=== PATIENT | female | born 2000 | race Caucasian/White ===

== ENCOUNTER 2020-06-08 05:37 | Outpatient (RCR) | payer BC ==
[~2020-06-08] VITALS: Ht 154 cm; Wt 84.0 kg
[2020-06-08] MEDS ORDERED: ZINC50TA11 PO (14:33)
[2020-06-08] MEDS ORDERED: LEVO25CA4 PO (14:33)
[2020-06-08] MEDS ORDERED: VITA1CAP PO (14:33)
[2020-06-08] MEDS ORDERED: ASCO-262 PO (14:33)
== END 2020-06-08 16:00 | disposition home or self-care (01) ==
LOC: PREOP 05:37
PROVIDERS: ATTEND Surgery
DX: Z01.818 Encounter for other preprocedural examination (principal)

== ENCOUNTER → 2020-06-09 | Outpatient (CLI) | payer BC, OTHER ==
[~2020-06-09] MED LIST: ASCO-262 PO; LEVO25CA4 PO; VITA1CAP PO; ZINC50TA11 PO
== END ==
LOC: LAB FS 10:30
PROVIDERS: ATTEND Surgery
DX: Z01.812 Encounter for preprocedural laboratory examination (principal); K21.9 Gastro-esophageal reflux disease without esophagitis; K92.1 Melena; Z20.828 Contact with and (suspected) exposure to other viral communicable diseases
CPT/HCPCS: 87635

== ENCOUNTER 2020-06-15 09:53 | Day surgery (SDC) | payer BC ==
[~2020-06-15] VITALS: Ht 154 cm; Wt 84.0 kg
[2020-06-15] VITALS (7 sets, daily range): BP systolic 98–116; BP diastolic 57–75
[2020-06-15] MEDS ORDERED: LACTATED RINGERS 1,000 ML IV ONE (09:59)
[2020-06-15] MEDS ORDERED: LACTATED RINGERS 1,000 ML IV STA (10:05)
[2020-06-15] MEDS ORDERED: HURRICAINE EXT TUBE (BENZOCAINE) XX PRN (10:15)
[2020-06-15] MEDS ORDERED: HURRICAINE EXT TUBE (BENZOCAINE) ONE (10:17)
[2020-06-15] MEDS ORDERED: MIDAZOLAM 5 MG/5 ML (VERSED) VIAL ONE (10:34)
[2020-06-15] MEDS ORDERED: PROPOFOL INJECTION 50 ML IV ONE ×2 (10:34→10:57)
--- NOTE | 2020-06-15 10:35 | Progress Note-Pre Operative ---
Pre-Operative Progress Note H&P Reviewed The H&P was reviewed, patient examined and no changes noted. Date Seen by Provider: Jun 15, 2020 Time Seen by Provider: 10:35 Date H&P Reviewed: Jun 15, 2020 Time H&P Reviewed: 10:35 Pre-Operative Diagnosis: gerd blood in stool SKIP MOULTON DO Jun 15, 2020 10:35
--- NOTE | 2020-06-15 11:21 | Progress Note-Post Operative ---
Post-Operative Progess Note Surgeon (s)/Toy Stuffer (s) Surgeon SKIP MOULTON DO Toy Stuffer: na Pre-Operative Diagnosis gerd blood in stool Post-Operative Diagnosis questionable submucosal mass normal colon posterior fissure Procedure & Operative Findings Date of Procedure 06/15/20 Procedure Performed/Findings egd c biopsies colonoscopy Anesthesia Type per supervisor frame assembly Estimated Blood Loss Estimated blood loss (mL): none Specimens/Packing Specimens Removed antrum, ge, SKIP MOULTON DO Jun 15, 2020 11:21
[2020-06-15] MEDS ORDERED: DOCU-143 PO (11:22)
--- NOTE | 2020-06-15 11:22 | Discharge Inst-Simple/Standard ---
Discharge Inst-Standard Discharge Medications New, Converted or Re-Newed RX: Transmitted to Pharmacy Patient Instructions/Follow Up Plan of Care/Instructions/FU: 2-3 weeks Kira Activity as Tolerated: Yes Discharge Diet: Regular Diet (high fiber) SKIP MOULTON DO Jun 15, 2020 11:22
--- NOTE | 2020-06-15 12:48 | OPERATIVE REPORT ---
DATE OF SERVICE: 06/15/2020 PREOPERATIVE DIAGNOSES: Gastroesophageal reflux disease, blood in stool. POSTOPERATIVE DIAGNOSIS: Questionable submucosal mass normal colon, posterior fissure. PROCEDURE: EGD with biopsies, colonoscopy. SURGEON: Skip Malone DO ANESTHESIA: Per MAPPING TECHNICIAN. ESTIMATED BLOOD LOSS: None. COMPLICATIONS: None. INDICATIONS: The patient is a 20-year-old female with GERD, blood in stool. She understands risks and benefits of procedure and wished to proceed with procedures. Consent was signed in the chart. DESCRIPTION OF PROCEDURE: The patient was taken to the endoscopy suite, placed in left lateral recumbent position. Timeout was performed. Scope was inserted in mouth, down the esophagus, stomach and into the duodenum without difficulty. There were no polyps, masses or ulcerations within the duodenum. Scope was slowly retracted back into the stomach where it was further insufflated. No polyps, masses or ulcerations within the antrum. Scope was slowly retracted back and along the greater curvature, no mucosa by the submucosal area it does appear to have a questionable submucosal mass. Scope was retroflexed noting no other pathology. Scope was returned to its normal position. Biopsy of the antrum was obtained. Scope was slowly retracted back to the GE junction, which biopsy of the GE junction was obtained. Questionable esophagitis. Scope was then slowly retracted back until completely removed, noting no other pathology. The patient tolerated procedure well. Digital rectal exam was performed. Posterior anal fissure is present with anal tag present. No active bleeding. No palpable polyps, masses or ulcerations. Scope was inserted in the rectum, advanced all the way to cecum with minimal difficulty. The ileocecal valve was intubated and normal appearance. Scope was then retracted back into the colon. No polyps, masses or ulcerations within the cecum, ascending, transverse, descending and sigmoid colon. Once in the rectum, scope was retroflexed noting no other pathology. Scope was returned to its normal position, slowly withdrawn until completely removed. The patient tolerated procedure well without any complications. She was taken to recovery room in stable condition. RECOMMENDATIONS: The patient was started on Colace 100 mg b.i.d. to keep stools soft. Recommend high fiber diet. Increase water. The patient will follow up in the office for reexamination. Bleeding source most likely from the posterior anal fissure. The patient with submucosal mass will consider further workup either with imaging versus endoscopic ultrasound. Await biopsy results. Job ID: [id number] DocumentID: [id number] Dictated Date: 06/15/2020 11:26:39 Brand Strategist Date: 06/15/2020 12:47:56 Dictated By: SKIP MALONE DO
--- NOTE | 2020-06-15 13:21 | Anesthesia-General Post-Op ---
MAC Patient Condition Mental Status/LOC: Same as Preop Cardiovascular: Satisfactory Nausea/Vomiting: Absent Respiratory: Satisfactory Pain: Controlled Complications: Absent Post Op Complications Complications None Follow Up Care/Instructions Patient Instructions None needed. Anesthesiology Discharge Order Discharge Order Patient is doing well, no complaints, stable vital signs, no apparent adverse anesthesia problems. No complications reported per nursing. SHAYLA CONNER CRNA Jun 15, 2020 13:21
== END 2020-06-15 12:30 | disposition home or self-care (01) ==
LOC: ENDO 09:53
PROVIDERS: ATTEND Surgery
DX: K21.00 Gastro-esophageal reflux disease with esophagitis, without bleeding (principal); K92.1 Melena; K60.2 Anal fissure, unspecified; K21.9 Gastro-esophageal reflux disease without esophagitis; M19.90 Unspecified osteoarthritis, unspecified site; Z79.899 Other long term (current) drug therapy; Z88.1 Allergy status to other antibiotic agents
CPT/HCPCS: 88305

== ENCOUNTER → 2020-08-13 | Outpatient (CLI) | payer BC ==
[~2020-08-13] MED LIST changes: +DOCU-143 PO
== END ==
LOC: LAB FS 10:20
PROVIDERS: ATTEND Internal Medicine Gastroenterology
DX: Z01.812 Encounter for preprocedural laboratory examination (principal); Z20.822 Contact with and (suspected) exposure to COVID-19
CPT/HCPCS: 87635